=== PATIENT | male | born 1985 | race Caucasian/White ===

== ENCOUNTER 2017-01-29 04:17 | Emergency (ER) | payer MEDICAID, OTHER ==
[2017-01-29] MEDS ORDERED: BENADRYL 50 MG/ML IV ONE ×2 (04:28→05:12)
[2017-01-29] MEDS ORDERED: Pepcid 20 MG VIAL IV ONE ×2 (04:28→04:37)
[2017-01-29] MEDS ORDERED: Hydromorphone 1 mg/ml Ampule IV ONE ×2 (04:28→05:12)
[2017-01-29] MEDS ORDERED: Sodium Chloride 0.9% 1000 ML 1,000 ML IV STA (04:28)
--- NOTE | 2017-01-29 04:34 | ERPHSYRPT ---
- History of Present Illness Time Seen by Provider: 01/29/17 04:19 Historian: patient, family () Patient Subjective Stated Complaint: pt was awakened with mid abd pain radiating to back -states he took tums without releif then tylenol which he vomited no fever feels cold no diarrhea no urinary sx Triage Nursing Assessment: pt is awake and alert and able to answer questions Physician History: CC: abd pain Hx: 31 y/o patient who formerly saw [facility] and plans to see Dr Mane. He had gradual abd pain starting around 4PM. Worsened. Awoke form sleep a couple of hours ago and the pain was sharp and severe in mid abdomen and radiated to his back. He vomited and had nausea. No diarrhea. Normal urination. No testicle pain. Not a drinker of alcohol. No prior abdominal surgeries. No fever or chills. No chest pain or cough. Timing/Duration: today Severity of Pain-Max: severe Severity of Pain-Current: severe Allergies/Adverse Reactions: No Known Drug Allergies Allergy (Unverified 01/29/17 04:30) Home Medications: Clonazepam 0 tab DAILY 01/29/17 [History] Escitalopram Oxalate 10 mg [Lexapro 10 MG] 1 tab DAILY 01/29/17 [History] Oxcarbazepine [Trileptal] 0 mg DAILY 01/29/17 [History] Trazodone HCl 0 mg DAILY 01/29/17 [History] Hx Tetanus, Diphtheria Vaccination/Date Given: Yes Hx Influenza Vaccination/Date Given: No Hx Pneumococcal Vaccination/Date Given: No - Review of Systems Constitutional: No Fever, No Chills Eyes: No Symptoms Ears, Nose, & Throat: No Symptoms Respiratory: No Cough, No Dyspnea Cardiac: No Chest Pain Abdominal/Gastrointestinal: Abdominal Pain, Nausea, Vomiting, No Diarrhea Genitourinary Symptoms: No Dysuria, No Hematuria, No Testicle Pain Musculoskeletal: No Back Pain Skin: No Rash Neurological: No Headache All Other Systems: Reviewed and Negative - Past Medical History Pertinent Past Medical History: Yes (anxiety) - Past Surgical History Past Surgical History: No (no prior abd surgeries) - Social History Smoking Status: Former smoker Exposure to second hand smoke: No Patient Lives Alone: No ( here with ) - Nursing Vital Signs Nursing Vital Signs: Initial Vital Signs Pulse Rate 50 Respiratory Rate 16 Blood Pressure [] 130/76 Pain Intensity 7 - Physical Exam General Appearance: alert Eye Exam: PERRL/EOMI, No scleral icterus Ears, Nose, Throat Exam: normal ENT inspection, moist mucous membranes Neck Exam: normal inspection, non-tender, supple Respiratory Exam: normal breath sounds, lungs clear, No respiratory distress Cardiovascular Exam: regular rate/rhythm, bradycardia, No murmur Gastrointestinal/Abdomen Exam: soft, tenderness (mid epigastric. Worse in RLQ with guarding. No mass.) Male Genitalia Exam: normal genitalia, No hernia, No testicular tenderness Back Exam: normal inspection, normal range of motion Extremity Exam: normal inspection, normal range of motion Neurologic Exam: alert, oriented x 3, cooperative, spa manager/esthetician II-XII nml as tested, sensation nml, No motor deficits Skin Exam: warm, dry, No rash - Course Nursing assessment & vital signs reviewed: Yes - CT Exams abd/pelvis CT Interpretation: Negative, Tele-radiologist Report, Normal Appendix Ordered Tests: Active Orders 24 hr Category Date Time Status Clean Catch Urine Specimen STAT Care 01/29/17 04:28 Active IV Insertion STAT Care 01/29/17 04:28 Active ABDOMEN AND PELVIS W CONTRAST [CT] Stat Exams 01/29/17 04:29 Taken CBC W DIFF Stat Lab 01/29/17 04:38 Completed CMP Stat Lab 01/29/17 04:38 Completed LIPASE Stat Lab 01/29/17 04:38 Completed Lactic Acid Urgent Lab 01/29/17 04:28 Completed UA W/ MICROSCOPIC Stat Lab 01/29/17 04:30 Completed Medication Summary Discontinued Medications Generic Name Dose Route Start Last Admin Trade Name Arlette PRN Reason Stop Dose Admin Diphenhydramine HCl 25 mg 01/29/17 04:28 01/29/17 04:41 Benadryl 50 Mg/Ml IV 01/29/17 04:29 25 mg STAT ONE Administration Diphenhydramine HCl Confirm 01/29/17 04:37 Benadryl 50 Mg/Ml Administered 01/29/17 04:38 Dose 50 mg .ROUTE .STK-MED ONE Diphenhydramine HCl 25 mg 01/29/17 05:12 01/29/17 05:20 Benadryl 50 Mg/Ml IV 01/29/17 05:13 25 mg STAT ONE Administration Diphenhydramine HCl Confirm 01/29/17 05:16 Benadryl 50 Mg/Ml Administered 01/29/17 05:17 Dose 50 mg .ROUTE .STK-MED ONE Famotidine 20 mg 01/29/17 04:28 01/29/17 04:42 Pepcid 20 Mg Vial IV 01/29/17 04:29 20 mg STAT ONE Administration Famotidine Confirm 01/29/17 04:37 Pepcid 20 Mg Vial Administered 01/29/17 04:38 Dose 20 mg IV .STK-MED ONE Hydromorphone HCl 1 mg 01/29/17 04:28 01/29/17 04:41 Hydromorphone 1 Mg/Ml Ampule IV 01/29/17 04:29 1 mg STAT ONE Administration Hydromorphone HCl Confirm 01/29/17 04:38 Hydromorphone 1 Mg/Ml Ampule Administered 01/29/17 04:39 Dose 1 mg .ROUTE .STK-MED ONE Hydromorphone HCl 1 mg 01/29/17 05:12 01/29/17 05:21 Hydromorphone 1 Mg/Ml Ampule IV 01/29/17 05:13 1 mg STAT ONE Administration Hydromorphone HCl Confirm 01/29/17 05:16 Hydromorphone 1 Mg/Ml Ampule Administered 01/29/17 05:17 Dose 1 mg .ROUTE .STK-MED ONE Sodium Chloride 1,000 mls @ 999 mls/hr 01/29/17 04:28 01/29/17 04:49 Sodium Chloride 0.9% 1000 Ml IV 01/29/17 05:28 999 mls/hr .Q1H1M STA Administration Sodium Chloride Confirm 01/29/17 04:38 Sodium Chloride 0.9% 1000 Ml Administered 01/29/17 04:39 Dose 1,000 mls @ ud .ROUTE .STK-MED ONE Lab/Rad Data: Laboratory Result Diagrams 01/29/17 04:38 01/29/17 04:38 Laboratory Results 01/29/17 01/29/17 01/29/17 Range/Units 04:38 04:38 04:30 WBC 8.9 (4.0-10.5) K/mm3 RBC 4.97 (4.1-5.6) M/mm3 Hgb 15.7 (12.5-18.0) gm/dl Hct 45.5 (42-50) % MCV 91.5 (78-100) fl MCH 31.6 (26-32) pg MCHC 34.5 (32-36) g/dl RDW 12.6 (11.5-14.0) % Plt Count 214 (150-450) K/mm3 MPV 12.6 H (6-9.5) fl Gran % 74.7 H (36.0-66.0) % Lymphocytes % 15.8 L (24.0-44.0) % Monocytes % 8.1 (0.0-12.0) % Eosinophils % 1.0 (0.00-5.0) % Basophils % 0.4 (0.0-0.4) % Basophils # 0.04 (0-0.4) Sodium 141 (136-145) mEq/L Potassium 4.1 (3.5-5.1) mEq/L Chloride 101 (98-107) mEq/L Carbon Dioxide 29.5 (21-32) mEq/L Anion Gap 14.8 (5-15) MEQ/L BUN 17 (9-20) mg/dL Creatinine 1.30 (0.55-1.30) mg/dl Estimated GFR > 60 ML/MIN Glucose 122 H (70-110) MG/DL Lactic Acid (0.4-2.0) Calcium 9.1 (8.5-10.1) mg/dL Total Bilirubin 0.4 (0.2-1.0) mg/dL AST 34 (15-37) U/L ALT 42 (12-78) U/L Alkaline Phosphatase 84 (46-116) U/L Serum Total Protein 7.9 (6.4-8.2) gm/dL Albumin 4.3 (3.4-5.0) g/dL Lipase 150 (73-393) U/L Ur Collection Type CLEAN CATCH Urine Color YELLOW (YELLOW) Urine Appearance CLEAR (CLEAR) Urine pH 7.0 (5-6) Ur Specific [place] 1.020 (1.005-1.025) Urine Protein TRACE (Negative) Urine Glucose (UA) NEGATIVE (NEGATIVE) mg/dL Urine Ketones NEGATIVE (NEGATIVE) Urine Nitrite NEGATIVE (NEGATIVE) Urine Bilirubin NEGATIVE (NEGATIVE) Urine Urobilinogen 0.2 (0-1) mg/dL Urine WBC (Auto) NEGATIVE (NEGATIVE) Urine RBC (Auto) NEGATIVE (0-5) Epifanio/ul Ur Epithelial Cells RARE (FEW) /HPF Amorphous Crystals FEW (NEGATIVE) /HPF Urine Bacteria FEW (NEGATIVE) /HPF Urine Mucus SLIGHT (NEGATIVE) /HPF Specimen Received 01/29/17:0430 01/29/17 Range/Units 04:28 WBC (4.0-10.5) K/mm3 RBC (4.1-5.6) M/mm3 Hgb (12.5-18.0) gm/dl Hct (42-50) % MCV (78-100) fl MCH (26-32) pg MCHC (32-36) g/dl RDW (11.5-14.0) % Plt Count (150-450) K/mm3 MPV (6-9.5) fl Gran % (36.0-66.0) % Lymphocytes % (24.0-44.0) % Monocytes % (0.0-12.0) % Eosinophils % (0.00-5.0) % Basophils % (0.0-0.4) % Basophils # (0-0.4) Sodium (136-145) mEq/L Potassium (3.5-5.1) mEq/L Chloride (98-107) mEq/L Carbon Dioxide (21-32) mEq/L Anion Gap (5-15) MEQ/L BUN (9-20) mg/dL Creatinine (0.55-1.30) mg/dl Estimated GFR ML/MIN Glucose (70-110) MG/DL Lactic Acid 1.4 (0.4-2.0) Calcium (8.5-10.1) mg/dL Total Bilirubin (0.2-1.0) mg/dL AST (15-37) U/L ALT (12-78) U/L Alkaline Phosphatase (46-116) U/L Serum Total Protein (6.4-8.2) gm/dL Albumin (3.4-5.0) g/dL Lipase (73-393) U/L Ur Collection Type Urine Color (YELLOW) Urine Appearance (CLEAR) Urine pH (5-6) Ur Specific [place] (1.005-1.025) Urine Protein (Negative) Urine Glucose (UA) (NEGATIVE) mg/dL Urine Ketones (NEGATIVE) Urine Nitrite (NEGATIVE) Urine Bilirubin (NEGATIVE) Urine Urobilinogen (0-1) mg/dL Urine WBC (Auto) (NEGATIVE) Urine RBC (Auto) (0-5) Epifanio/ul Ur Epithelial Cells (FEW) /HPF Amorphous Crystals (NEGATIVE) /HPF Urine Bacteria (NEGATIVE) /HPF Urine Mucus (NEGATIVE) /HPF Specimen Received - Progress Progress Note: 01/29/17 05:49 Pain better. Abd soft. Labs and CT reassuring. Will Rx pepcid. Advised follow up Dr Mane in 1-2 days. Counseled pt/family regarding: lab results, diagnosis, need for follow-up, rad results - Departure Time of Disposition: 05:50 Departure Disposition: Home Clinical Impression: Abdominal pain Qualifiers: Abdominal location: epigastric Qualified Code(s): R10.13 - Epigastric pain Condition: Stable Critical Care Time: No Referrals: SARITA MANE [Primary Care Provider] - Instructions: Abdominal Pain-Adult Additional Instructions: ABDOMINAL PAIN 1. There are several different causes for abdominal pain, some of which may not be able to be identified on initial examination. 2. The important thing to remember is that bodily functions can change in a short period of time. If you notice any of the following symptoms, return to the emergency department or consult your doctor immediately: A. Worsening pain or no improvement in the next 12 hours. B. Increasing, severe abdominal pain C. Blood in stool D. Black stools E. Persistent vomiting F. Fever or chills or other symptoms [place] diet. Rx pepcid. Follow up in 1-[address] Mane. Return for problems or concerns. No driving or operating machinery today. Prescriptions: Famotidine 20 mg [Pepcid 20 MG] 1 tab PO BID #30 tablet
[2017-01-29] MEDS ORDERED: BENADRYL 50 MG/ML ONE ×2 (04:37→05:16)
[2017-01-29] MEDS ORDERED: Sodium Chloride 0.9% 1000 ML 1,000 ML ONE (04:38)
[2017-01-29] MEDS ORDERED: Hydromorphone 1 mg/ml Ampule ONE ×2 (04:38→05:16)
[2017-01-29 04:45] LABS: BASOPHIL % 0.4 % (0.0-0.4); Granulocytes % 74.7 % (36.0-66.0); Lymphocytes % 15.8 % (24.0-44.0); Mean Cell Volume 91.5 fl (78-100); Mean Corpuscular Hemoglobin 31.6 pg (26-32); Mean Platelet Volume 12.6 fl (6-9.5); Monocytes % 8.1 % (0.0-12.0); Platelet Count 214 K/mm3 (150-450); Red Blood Count 4.97 M/mm3 (4.1-5.6); Red Cell Distribution Width 12.6 % (11.5-14.0); White Blood Count 8.9 K/mm3 (4.0-10.5)
[2017-01-29 04:56] LABS: Bacteria FEW /HPF (NEGATIVE); COMPLETE URINE MICROSCOPIC? YES; Collection Type CLEAN CATCH; Epithelial Cells RARE /HPF (FEW); Mucus SLIGHT /HPF (NEGATIVE)
[2017-01-29 05:40] LABS: ALBUMIN 4.3 g/dL (3.4-5.0); BLOOD UREA NITROGEN 17 mg/dL (9-20); CHLORIDE 101 mEq/L (98-107); Carbon Dioxide 29.5 mEq/L (21-32); Glucose 122 MG/DL (70-110); Potassium 4.1 mEq/L (3.5-5.1); SODIUM 141 mEq/L (136-145); Total Protein 7.9 gm/dL (6.4-8.2)
[2017-01-29 05:41] LABS: ALKALINE PHOSPHATASE 84 U/L (46-116); ANION GAP 14.8 MEQ/L (5-15); BILIRUBIN,TOTAL 0.4 mg/dL (0.2-1.0); LIPASE 150 U/L (73-393); SGOT/AST 34 U/L (15-37); SGPT/ALT 42 U/L (12-78)
[2017-01-29 05:54] VITALS: BP 140/72; PULSE 68; O2SAT 98
--- NOTE | 2017-01-29 08:56 | XRAY ---
Indication: Midabdominal pain and emesis. Multiple contiguous axial images obtained through the abdomen and pelvis using 80 cc Isovue 370 contrast only. Comparison: None. Lung bases demonstrates minimal bibasilar dependent atelectasis and right lower lobe calcified granuloma. Heart is not enlarged. Noncontrasted stomach and bowel loops appear nonobstructed. Normal appendix. No free fluid/air. 14.3 cm splenomegaly. Remaining liver, gallbladder, pancreas, spleen, adrenal glands, kidneys, ureters, bladder, and aorta appear unremarkable. No pathologic retroperitoneal lymphadenopathy. Osseous structures intact minimal spinal degenerative changes. Impression: Right lung base calcified granuloma and splenomegaly. No acute intra-abdominal/pelvic abnormalities. Comment: Preliminary interpretation was made by [facility]. No critical discrepancy. CTDI 23.25
== END 2017-01-29 06:20 | disposition home or self-care (01) ==
LOC: ED 04:17
DX: R10.13 Epigastric pain (principal); R10.9 Unspecified abdominal pain; Z79.899 Other long term (current) drug therapy; M54.9 Dorsalgia, unspecified; F41.9 Anxiety disorder, unspecified
CPT/HCPCS: 36000; 36415; 74177; 80053; 81000; 83605; 83690; 85025; 96360; 96374; 96375; 96376; 99284; J1170; J1200

== ENCOUNTER 2017-01-29 21:24 | Emergency (ER) | payer MEDICAID ==
[2017-01-29 21:44] VITALS: O2SAT 98
[2017-01-29] MEDS ORDERED: TORAdol 30 mg Injection IV ONE (21:51)
[2017-01-29] MEDS ORDERED: Sodium Chloride 0.9% 1000 ML 1,000 ML IV STA (21:51)
[2017-01-29] MEDS ORDERED: Vistaril 50 MG/ML IM ONE ×2 (21:52→22:02)
[2017-01-29 21:56] LABS: BASOPHIL % 0.4 % (0.0-0.4); Eosinophil % 1.6 % (0.00-5.0); Granulocytes % 71.3 % (36.0-66.0); Lymphocytes % 18.3 % (24.0-44.0); Mean Cell Volume 91.8 fl (78-100); Mean Corpuscular Hemoglobin 31.6 pg (26-32); Mean Platelet Volume 12.6 fl (6-9.5); Monocytes % 8.4 % (0.0-12.0); Platelet Count 213 K/mm3 (150-450); Red Blood Count 4.87 M/mm3 (4.1-5.6); Red Cell Distribution Width 12.6 % (11.5-14.0); White Blood Count 10.8 K/mm3 (4.0-10.5)
--- NOTE | 2017-01-29 21:56 | ERPHSYRPT ---
- History of Present Illness Time Seen by Provider: 01/29/17 21:37 Historian: patient, family Patient Subjective Stated Complaint: pt was seen in er this am for the same pain in his mid abd -states after leaving the er he the pain was tolerable for awhile then this jimmie the pain is back just as bad -vomited times 2 first food ( rice and granola) then bile -voiding ok normal bm today no fever but chilling Triage Nursing Assessment: pt is awaken and alert and able to answer questions - moaing with pain Physician History: CC: abd pain Hx: 31 y/o patient of Dr Mane. He was in ER earlier this AM with abd pain. Labs and CT reassuring. He felt better and went home. The pain was mild all day. Since 6PM the central abd pain radiating to his back has again been severe and associated with nausea and vomiting. No fever. No chills. No chest pain. Normal urination. No testicle pain or swelling. No prior abdominal surgeries. Pain rated as severe. Timing/Duration: yesterday Abdominal Pain Onset Location: generalized abdomen Severity of Pain-Max: severe Severity of Pain-Current: severe Allergies/Adverse Reactions: No Known Drug Allergies Allergy (Unverified 01/29/17 04:30) Home Medications: Clonazepam 0 tab DAILY 01/29/17 [History] Escitalopram Oxalate 10 mg [Lexapro 10 MG] 1 tab DAILY 01/29/17 [History] Oxcarbazepine [Trileptal] 0 mg DAILY 01/29/17 [History] Trazodone HCl 0 mg DAILY 01/29/17 [History] Hx Tetanus, Diphtheria Vaccination/Date Given: Yes Hx Influenza Vaccination/Date Given: No Hx Pneumococcal Vaccination/Date Given: No - Review of Systems Constitutional: No Fever, No Chills Eyes: No Symptoms Ears, Nose, & Throat: No Symptoms Respiratory: No Cough Cardiac: No Chest Pain Abdominal/Gastrointestinal: Abdominal Pain, Nausea, Vomiting, No Diarrhea Genitourinary Symptoms: No Dysuria, No Hematuria Skin: No Rash Neurological: No Headache All Other Systems: Reviewed and Negative - Past Medical History Pertinent Past Medical History: Yes (anxiety) Musculoskeletal History: Other Psycho-Social History: Anxiety, Depression Other Medical History: back problems history of etoh use in past - Past Surgical History Past Surgical History: No (no prior abd surgeries) Musculoskeletal: Other Other Surgical History: back surgery - Social History Smoking Status: Former smoker Exposure to second hand smoke: No Drug Use: none Patient Lives Alone: No ( here with ) - Nursing Vital Signs Nursing Vital Signs: Initial Vital Signs Temperature 98 F Temperature Source Oral Pulse Rate 60 Respiratory Rate 16 Blood Pressure [Right Arm] 118/78 Pain Intensity 8 - Physical Exam General Appearance: alert Eye Exam: PERRL/EOMI Ears, Nose, Throat Exam: normal ENT inspection, pharynx normal, moist mucous membranes Neck Exam: normal inspection, non-tender, supple Respiratory Exam: normal breath sounds, lungs clear Cardiovascular Exam: regular rate/rhythm, No murmur Gastrointestinal/Abdomen Exam: soft, tenderness (mild diffuse worse in epigastrum and right and left lower), No mass, No guarding Male Genitalia Exam: normal genitalia, No hernia, No testicular tenderness Back Exam: normal inspection, normal range of motion Extremity Exam: normal inspection, normal range of motion Neurologic Exam: alert, oriented x 3, cooperative, director process engineering II-XII nml as tested, sensation nml, No motor deficits Skin Exam: warm, dry, No rash SpO2 Interpretation: normal SpO2: 98 Oxygen Delivery: Room Air - Course Nursing assessment & vital signs reviewed: Yes - Radiology Exams AAS X-ray Interpretation: Reviewed by me, Negative Ordered Tests: Active Orders 24 hr Category Date Time Status Clean Catch Urine Specimen STAT Care 01/29/17 21:51 Active IV Insertion STAT Care 01/29/17 21:51 Active NPO (ED) STAT Care 01/29/17 21:51 Active OBSTR/ACUTE ABDOMEN SERIES Stat Exams 01/29/17 21:51 Taken CBC W DIFF Stat Lab 01/29/17 21:50 Completed CMP Stat Lab 01/29/17 21:50 Completed LIPASE Stat Lab 01/29/17 21:50 Completed UA Stat Lab 01/29/17 22:15 Completed Urine Triage Profile Stat Lab 01/29/17 22:15 Completed Medication Summary Discontinued Medications Generic Name Dose Route Start Last Admin Trade Name Freq PRN Reason Stop Dose Admin Fentanyl Citrate 100 mcg 01/29/17 23:10 01/29/17 23:17 Sublimaze 100 Mcg/2 Ml IV 01/29/17 23:11 100 mcg STAT ONE Administration Fentanyl Citrate Confirm 01/29/17 23:13 Sublimaze 100 Mcg/2 Ml Administered 01/29/17 23:14 Dose 100 mcg .ROUTE .STK-MED ONE Hydroxyzine HCl 50 mg 01/29/17 21:52 01/29/17 22:09 Vistaril 50 Mg/Ml IM 01/29/17 21:53 50 mg STAT ONE Administration Hydroxyzine HCl Confirm 01/29/17 22:02 Vistaril 50 Mg/Ml Administered 01/29/17 22:03 Dose 50 mg IM .STK-MED ONE Sodium Chloride 1,000 mls @ 999 mls/hr 01/29/17 21:51 01/29/17 22:05 Sodium Chloride 0.9% 1000 Ml IV 01/29/17 22:51 999 mls/hr .Q1H1M STA Administration Sodium Chloride Confirm 01/29/17 22:02 Sodium Chloride 0.9% 1000 Ml Administered 01/29/17 22:03 Dose 1,000 mls @ ud .ROUTE .STK-MED ONE Lactated Ringer's 1,000 mls @ 999 mls/hr 01/29/17 22:38 01/29/17 22:53 Lactated Ringers IV 01/29/17 23:38 999 mls/hr .Q1H1M ONE Administration Lactated Ringer's Confirm 01/29/17 22:46 Lactated Ringers Administered 01/29/17 22:47 Dose 1,000 mls @ ud IV .STK-MED ONE Ketorolac Tromethamine 30 mg 01/29/17 21:51 01/29/17 22:08 Toradol 30 Mg Injection IV 01/29/17 21:52 30 mg STAT ONE Administration Ketorolac Tromethamine Confirm 01/29/17 22:02 Toradol 30 Mg Injection Administered 01/29/17 22:03 Dose 30 mg .ROUTE .STK-MED ONE Pantoprazole Sodium 40 mg 01/29/17 22:38 01/29/17 22:50 Protonix 40 Mg Iv IV 01/29/17 22:39 40 mg STAT ONE Administration Pantoprazole Sodium Confirm 01/29/17 22:46 Protonix 40 Mg Iv Administered 01/29/17 22:47 Dose 40 mg IV .STK-MED ONE Lab/Rad Data: Laboratory Result Diagrams 01/29/17 21:50 01/29/17 21:50 Laboratory Results 01/29/17 01/29/17 01/29/17 Range/Units 22:15 22:15 21:50 WBC (4.0-10.5) K/mm3 RBC (4.1-5.6) M/mm3 Hgb (12.5-18.0) gm/dl Hct (42-50) % MCV (78-100) fl MCH (26-32) pg MCHC (32-36) g/dl RDW (11.5-14.0) % Plt Count (150-450) K/mm3 MPV (6-9.5) fl Gran % (36.0-66.0) % Lymphocytes % (24.0-44.0) % Monocytes % (0.0-12.0) % Eosinophils % (0.00-5.0) % Basophils % (0.0-0.4) % Basophils # (0-0.4) Sodium 143 (136-145) mEq/L Potassium 3.7 (3.5-5.1) mEq/L Chloride 103 (98-107) mEq/L Carbon Dioxide 28.7 (21-32) mEq/L Anion Gap 15.0 (5-15) MEQ/L BUN 14 (9-20) mg/dL Creatinine 1.22 (0.55-1.30) mg/dl Estimated GFR > 60 ML/MIN Glucose 105 (70-110) MG/DL Calcium 8.7 (8.5-10.1) mg/dL Total Bilirubin 0.3 (0.2-1.0) mg/dL AST 33 (15-37) U/L ALT 42 (12-78) U/L Alkaline Phosphatase 78 (46-116) U/L Serum Total Protein 7.5 (6.4-8.2) gm/dL Albumin 4.1 (3.4-5.0) g/dL Lipase 273 (73-393) U/L Ur Collection Type CLEAN CATCH Urine Color [place] (YELLOW) Urine Appearance CLEAR (CLEAR) Urine pH 6.0 (5-6) Ur Specific [place] >=1.030 (1.005-1.025) Urine Protein 30 (Negative) Urine Glucose (UA) NEGATIVE (NEGATIVE) mg/dL Urine Ketones TRACE (NEGATIVE) Urine Nitrite NEGATIVE (NEGATIVE) Urine Bilirubin SMALL (NEGATIVE) Urine Urobilinogen 0.2 (0-1) mg/dL Urine WBC (Auto) NEGATIVE (NEGATIVE) Urine RBC (Auto) NEGATIVE (0-5) Epifanio/ul Urine Opiates Level NEG. (NEGATIVE) Ur Methadone NEG. (NEGATIVE) Urine Barbiturates NEG. (NEGATIVE) Ur Phencyclidine (PCP) NEG. (NEGATIVE) Urine Amphetamine NEG. (NEGATIVE) U Benzodiazepine Level NEG. (NEGATIVE) Urine Cocaine NEG. (NEGATIVE) Urine Marijuana (THC) POS. (NEGATIVE) Specimen Received 01/29/17:2215 01/29/17 Range/Units 21:50 WBC 10.8 H (4.0-10.5) K/mm3 RBC 4.87 (4.1-5.6) M/mm3 Hgb 15.4 (12.5-18.0) gm/dl Hct 44.7 (42-50) % MCV 91.8 (78-100) fl MCH 31.6 (26-32) pg MCHC 34.5 (32-36) g/dl RDW 12.6 (11.5-14.0) % Plt Count 213 (150-450) K/mm3 MPV 12.6 H (6-9.5) fl Gran % 71.3 H (36.0-66.0) % Lymphocytes % 18.3 L (24.0-44.0) % Monocytes % 8.4 (0.0-12.0) % Eosinophils % 1.6 (0.00-5.0) % Basophils % 0.4 (0.0-0.4) % Basophils # 0.04 (0-0.4) Sodium (136-145) mEq/L Potassium (3.5-5.1) mEq/L Chloride (98-107) mEq/L Carbon Dioxide (21-32) mEq/L Anion Gap (5-15) MEQ/L BUN (9-20) mg/dL Creatinine (0.55-1.30) mg/dl Estimated GFR ML/MIN Glucose (70-110) MG/DL Calcium (8.5-10.1) mg/dL Total Bilirubin (0.2-1.0) mg/dL AST (15-37) U/L ALT (12-78) U/L Alkaline Phosphatase (46-116) U/L Serum Total Protein (6.4-8.2) gm/dL Albumin (3.4-5.0) g/dL Lipase (73-393) U/L Ur Collection Type Urine Color (YELLOW) Urine Appearance (CLEAR) Urine pH (5-6) Ur Specific [place] (1.005-1.025) Urine Protein (Negative) Urine Glucose (UA) (NEGATIVE) mg/dL Urine Ketones (NEGATIVE) Urine Nitrite (NEGATIVE) Urine Bilirubin (NEGATIVE) Urine Urobilinogen (0-1) mg/dL Urine WBC (Auto) (NEGATIVE) Urine RBC (Auto) (0-5) Epifanio/ul Urine Opiates Level (NEGATIVE) Ur Methadone (NEGATIVE) Urine Barbiturates (NEGATIVE) Ur Phencyclidine (PCP) (NEGATIVE) Urine Amphetamine (NEGATIVE) U Benzodiazepine Level (NEGATIVE) Urine Cocaine (NEGATIVE) Urine Marijuana (THC) (NEGATIVE) Specimen Received - Progress Progress Note: 01/29/17 22:37 UDS positive for THC. He states smokes marijuana daily for quite some time. One hot shower a day. Medicated with slight improvement is symptoms. UA appears somewhat dehydrated. IVF bolus given. Counselled against THC/drug use. 01/29/17 23:[address] early this AM negative including normal appendix. He was given IVF 2L, vistaril, toradol, protonix, fentanyl with some improvement. Offered observation or home with office follow up tomorrow. He chose office followup. Instr given. Counseled pt/family regarding: lab results, diagnosis, need for follow-up, rad results - Departure Time of Disposition: 23:44 Departure Disposition: Home Clinical Impression: Abdominal pain Qualifiers: Abdominal location: generalized Qualified Code(s): R10.84 - Generalized abdominal pain Condition: Stable Critical Care Time: No Referrals: SARITA MANE [Primary Care Provider] - Instructions: Abdominal Pain-Adult Additional Instructions: ABDOMINAL PAIN 1. There are several different causes for abdominal pain, some of which may not be able to be identified on initial examination. 2. The important thing to remember is that bodily functions can change in a short period of time. If you notice any of the following symptoms, return to the emergency department or consult your doctor immediately: A. Worsening pain or no improvement in the next 12 hours. B. Increasing, severe abdominal pain C. Blood in stool D. Black stools E. Persistent vomiting F. Fever or chills or other symptoms Rx protonix. See Dr Mane or [facility] for recheck tomorrow. Return for problems or concerns. Prescriptions: PANTOPRAZOLE 40 mg Tablet [Protonix 40MG Tablet] 40 mg PO QAM #30 tab
[2017-01-29] MEDS ORDERED: Sodium Chloride 0.9% 1000 ML 1,000 ML ONE (22:02)
[2017-01-29] MEDS ORDERED: TORAdol 30 mg Injection ONE (22:02)
[2017-01-29 22:17] LABS: ALBUMIN 4.1 g/dL (3.4-5.0); ALKALINE PHOSPHATASE 78 U/L (46-116); BILIRUBIN,TOTAL 0.3 mg/dL (0.2-1.0); BLOOD UREA NITROGEN 14 mg/dL (9-20); CHLORIDE 103 mEq/L (98-107); Carbon Dioxide 28.7 mEq/L (21-32); Glucose 105 MG/DL (70-110); LIPASE 273 U/L (73-393); Potassium 3.7 mEq/L (3.5-5.1); SGOT/AST 33 U/L (15-37); SGPT/ALT 42 U/L (12-78); SODIUM 143 mEq/L (136-145); Total Protein 7.5 gm/dL (6.4-8.2)
[2017-01-29 22:28] LABS: Collection Type CLEAN CATCH
[2017-01-29] MEDS ORDERED: Lactated Ringers 1,000 ML IV ONE ×2 (22:38→22:46)
[2017-01-29] MEDS ORDERED: PROTONIX 40 MG IV IV ONE ×2 (22:38→22:46)
[2017-01-29] MEDS ORDERED: SUBLIMAZE 100 MCG/2 ML IV ONE (23:10)
[2017-01-29] MEDS ORDERED: SUBLIMAZE 100 MCG/2 ML ONE (23:13)
[2017-01-29 23:33] VITALS: PULSE 60
[2017-01-30 00:03] VITALS: BP 128/78
--- NOTE | 2017-01-30 08:46 | XRAY ---
Indication: Abdominal pain. Comparison: None 2 views of the abdomen nonacute and nonobstructed. Solid organs and osseous structures unremarkable. Single frontal chest demonstrates normal heart, lungs, and bony thorax. Impression: Negative abdomen and one view chest.
== END 2017-01-30 00:03 | disposition home or self-care (01) ==
LOC: ED 21:24
DX: R10.84 Generalized abdominal pain (principal); R11.2 Nausea with vomiting, unspecified
CPT/HCPCS: 36000; 36415; 74022; 80053; 80307; 81000; 81002; 83690; 85025; 96360; 96361; 96372; 96374; 96375; 99284; J1885; J3010; J3410